=== PATIENT | female | born 1995 | race Caucasian/White ===

== ENCOUNTER 2022-12-30 19:52 | Emergency (ER) | payer MEDICAID ==
[~2022-12-30] VITALS: Ht 175.3 cm; Wt 45.4 kg
[~2022-12-30 19:52] MED LIST: NITR100C6 PO; PHEN-887 PO
[2022-12-30 19:56] VITALS: BP 128/74
== END 2022-12-30 21:57 | disposition left against medical advice (07) ==
LOC: ER 19:53
DX: S30.861A Insect bite (nonvenomous) of abdominal wall, initial encounter (principal); Z53.21 Procedure and treatment not carried out due to patient leaving prior to being seen by health care provider; W57.XXXA Bitten or stung by nonvenomous insect and other nonvenomous arthropods, initial encounter; Y93.89 Activity, other specified; Y92.89 Other specified places as the place of occurrence of the external cause; Y99.8 Other external cause status
CPT/HCPCS: 99281